=== PATIENT | female | born 1985 | race Caucasian/White ===

== ENCOUNTER 2019-03-31 16:21 | Emergency (ER) | payer OTHER ==
[2019-03-31 17:59] VITALS: O2SAT 98
--- NOTE | 2019-03-31 18:26 | ERPHSYRPT ---
- History of Present Illness Time Seen by Provider: 03/31/19 16:55 Source: patient, family Exam Limitations: no limitations Patient Subjective Stated Complaint: Pt stepped in a hole and twisted her left ankle Triage Nursing Assessment: Pt was wheeled into the ER by a wheelchair, left ankle swollen on the lateral side, vitals wnl, left foot swelling, capillary refill good, pulses normal, rates pain /10 Physician History: 33 y/o white female presents with tender swollen left ankle after pt foot fell into hole and twisted left ankle. pt can put weight on it but it hurts. occurred at 1100 this am Method of Injury: twisted Occurred: this morning Quality: aching, throbbing Severity of Pain-Max: mild Severity of Pain-Current: mild Lower Extremities Pain: ankle: left Modifying Factors: Improves With: movement Associated Symptoms: other (hurt to bear weight) Allergies/Adverse Reactions: Penicillins Allergy (Verified 03/31/19 16:53) shellfish derived Allergy (Verified 03/31/19 16:53) Home Medications: Bupropion HCl [Wellbutrin Sr] 200 mg PO BID 03/31/19 [History] Calcium Carbonate/Vitamin D3 [Calcium 600 + Vit D Tablet] 1 each PO DAILY [History] Fluoxetine HCl 20 mg PO DAILY 03/31/19 [History] Folic Acid 1 mg [Folate 1 mg] 1 mg PO DAILY 03/31/19 [History] Hydroxyzine HCl 25 mg [Atarax 25 mg] 25 mg PO BID 03/31/19 [History] Montelukast Sodium 10 mg [Singulair 10 MG] 10 mg PO DAILY 03/31/19 [History] Montelukast Sodium 10 mg [Singulair 10 MG] 10 mg PO DAILY 03/31/19 [History] lamoTRIgine [Lamotrigine] 200 mg PO QAM 03/31/19 [History] raNITIdine HCl [Ranitidine HCl] 300 mg PO DAILY 03/31/19 [History] - Review of Systems Constitutional: No Symptoms Eyes: No Symptoms Ears, Nose, & Throat: No Symptoms Respiratory: No Symptoms Cardiac: No Symptoms Abdominal/Gastrointestinal: No Symptoms Genitourinary Symptoms: No Symptoms Musculoskeletal: Fall, Injury (left ankle) Skin: No Symptoms Neurological: No Symptoms Psychological: No Symptoms Endocrine: No Symptoms Hematologic/Lymphatic: No Symptoms Immunological/Allergic: No Symptoms All Other Systems: Reviewed and Negative - Past Medical History Neurological History: Epilepsy ENT History: Other Cardiac History: No Pertinent History Respiratory History: No Pertinent History Endocrine Medical History: No Pertinent History Musculoskeletal History: No Pertinent History GI Medical History: No Pertinent History History: No Pertinent History Psycho-Social History: Anxiety Female Reproductive Disorders: No Pertinent History - Past Surgical History Past Surgical History: Yes Neuro Surgical History: No Pertinent History Cardiac: No Pertinent History Respiratory: No Pertinent History Gastrointestinal: No Pertinent History Genitourinary: No Pertinent History Musculoskeletal: Orthopedic Surgery Female Surgical History: Dilation & Curettage, Tubal Ligation - Social History Smoking Status: Former smoker Exposure to second hand smoke: No Drug Use: none Patient Lives Alone: No - Female History Hx Now: No - Nursing Vital Signs Nursing Vital Signs: Initial Vital Signs Temperature 98.5 F 03/31/19 16:44 Pulse Rate 83 03/31/19 16:44 Blood Pressure 114/80 03/31/19 16:44 O2 Sat by Pulse Oximetry 97 03/31/19 16:44 Pain Scale Pain Intensity 8 - Physical Exam General Appearance: no apparent distress, alert, anxiety Eyes, Ears, Nose, Throat Exam: normal ENT inspection, moist mucous membranes Neck Exam: normal inspection, non-tender, supple, full range of motion Cardiovascular/Respiratory Exam: No chest non-tender Gastrointestinal/Abdominal Exam: non-tender Back Exam: normal inspection, normal range of motion, CVA tenderness Hips Exam: bilateral: non-tender, normal inspection, normal range of motion, no evidence of injury Legs Exam: bilateral leg: non-tender, normal inspection, normal range of motion , no evidence of injury Knees Exam: bilateral knee: non-tender, normal inspection, normal range of motion, no evidence of injury Ankle Exam: right ankle: non-tender, normal inspection, normal range of motion, no evidence of injury, left ankle: limited range of motion, soft tissue tenderness (lateral), swelling (lateral) Foot Exam: bilateral foot: non-tender, normal inspection, normal range of motion , no evidence of injury Neuro/Tendon Exam: normal sensation, normal motor functions, normal tendon functions Mental Status Exam: alert, oriented x 3, cooperative Skin Exam: normal color, warm, dry SpO2 Interpretation: normal SpO2: 98 O2 Delivery: Room Air - Course Nursing assessment & vital signs reviewed: No Ordered Tests: Active Orders 24 hr Category Date Time Status ANKLE (3 VIEWS) Stat Exams 03/31/19 16:49 Taken - Progress Progress: unchanged Progress Note: 03/31/19 18:27 xray left ankle-no acute fx or dislocation Counseled pt/family regarding: diagnosis, need for follow-up, rad results - Departure Departure Disposition: Home Clinical Impression: Left ankle sprain Condition: Stable Critical Care Time: No Referrals: PINO WEEMS [Primary Care Provider] - Additional Instructions: ice pack to site 3 times daily for 2 days. tylenol and ibuprofen for pain. follow up with primary doctor for persistent pain/swelling
[2019-03-31] MEDS ORDERED: Adacel Vial IM ONE ×2 (18:32→18:37)
[2019-03-31 18:49] VITALS: BP 107/65; PULSE 86
--- NOTE | 2019-04-01 07:47 | XRAY ---
Indication: Pain following injury. Comparison: None 3 views of the left ankle demonstrates punctate ossification adjacent to tip of the lateral malleolus with soft tissue swelling, possible avulsion fracture. Tiny heel spurs. No other bony, articular, or soft tissue abnormalities.
== END 2019-03-31 18:52 | disposition home or self-care (01) ==
LOC: ED 16:21
DX: S93.402A Sprain of unspecified ligament of left ankle, initial encounter (principal); W50.2XXA Accidental twist by another person, initial encounter; Y93.89 Activity, other specified; Y92.89 Other specified places as the place of occurrence of the external cause; G40.909 Epilepsy, unspecified, not intractable, without status epilepticus; Z79.899 Other long term (current) drug therapy
CPT/HCPCS: 73610; 90471; 90715; 99284

== ENCOUNTER 2021-07-29 15:15 | Emergency (ER) | payer OTHER ==
[2021-07-29] MEDS ORDERED: Racepinephrine INH Solution 2.25% IH ONE ×2 (15:22→15:26)
[2021-07-29] MEDS ORDERED: solu-MEDROL 125 MG, Sterile H2O 10 ml 2 ML IV ONE ×2 (15:22)
[2021-07-29] MEDS ORDERED: BENADRYL 50 MG/ML IV ONE (15:22)
[2021-07-29] MEDS ORDERED: Pepcid 20 MG VIAL IV ONE ×2 (15:22→15:24)
[2021-07-29] MEDS ORDERED: BENADRYL 50 MG/ML ONE (15:24)
[2021-07-29] MEDS ORDERED: Sterile H2O 10 ml IJ ONE (15:25)
[2021-07-29] MEDS ORDERED: solu-MEDROL ONE (15:25)
[2021-07-29] MEDS ORDERED: Sodium Chloride 3 ML UD NEBULES IH ONE (15:26)
--- NOTE | 2021-07-29 15:38 | ERPHSYRPT ---
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 She is complaining of sudden onset moderate intensity throat pain/scratchiness with some swelling without any difficulty breathing. Does not report swelling of tongue. Timing/Duration: abrupt onset, this afternoon Severity: moderate ENT Location: throat Prearrival Treatment: no prearrival treatment Associated Symptoms: sore throat Allergies/Adverse Reactions: bee venom protein (honey bee) Allergy (Verified 07/29/21 15:29) Penicillins Allergy (Verified 03/31/19 16:53) shellfish derived Allergy (Verified 03/31/19 16:53) Home Medications: Bupropion HCl [Wellbutrin Sr] 200 mg PO BID 03/31/19 [History] Calcium Carbonate/Vitamin D3 [Calcium 600 + Vit D Tablet] 1 each PO DAILY 03/31/19 [History] Fluoxetine HCl 20 mg PO DAILY 03/31/19 [History] Folic Acid 1 mg [Folate 1 mg] 1 mg PO DAILY 03/31/19 [History] Hydroxyzine HCl 25 mg [Atarax 25 mg] 10 mg PO BID 03/31/19 [History] lamoTRIgine [Lamotrigine] 200 mg PO QAM 03/31/19 [History] Fexofenadine HCl [Felicia] 30 mg PO DAILY 07/29/21 [History] Omeprazole 20 mg PO DAILY 07/29/21 [History] Travel Risk - International Travel Have you traveled outside of the country in past 3 weeks: No - Coronavirus Screening Are you exhibiting any of the following symptoms?: No Close contact with a COVID-19 positive Pt in past 14-21 Days: No - Vaccine Status Have you recieved a Covid-19 vaccination: Yes Patient Assistant: [employer] - Vaccination Dates Date of 2cond Vaccination (if applicable): 03/2021 - Review of Systems Constitutional: No Symptoms Eyes: No Symptoms Ears, Nose, & Throat: Throat Pain, Throat Swelling Respiratory: No Symptoms Cardiac: No Symptoms Abdominal/Gastrointestinal: No Symptoms Genitourinary Symptoms: No Symptoms Musculoskeletal: No Symptoms Skin: No Symptoms Neurological: No Symptoms Psychological: No Symptoms Endocrine: No Symptoms Hematologic/Lymphatic: No Symptoms Immunological/Allergic: No Symptoms - Past Medical History Pertinent Past Medical History: Yes Neurological History: Epilepsy ENT History: Other Cardiac History: No Pertinent History Respiratory History: No Pertinent History Endocrine Medical History: No Pertinent History Musculoskeletal History: No Pertinent History GI Medical History: No Pertinent History History: No Pertinent History Psycho-Social History: Anxiety Female Reproductive Disorders: No Pertinent History Other Medical History: sinus - Past Surgical History Past Surgical History: Yes Neuro Surgical History: No Pertinent History Cardiac: No Pertinent History Respiratory: No Pertinent History Gastrointestinal: No Pertinent History Genitourinary: No Pertinent History Musculoskeletal: Orthopedic Surgery Female Surgical History: Dilation & Curettage, Tubal Ligation - Social History Smoking Status: Former smoker Exposure to second hand smoke: No Drug Use: none Patient Lives Alone: No - Female History Hx Now: No - Nursing Vital Signs Nursing Vital Signs: Initial Vital Signs Temperature 98.6 F 07/29/21 15:19 Pulse Rate 96 H 07/29/21 15:19 Blood Pressure 148/87 07/29/21 15:19 O2 Sat by Pulse Oximetry 100 07/29/21 15:19 Pain Scale Pain Intensity 2 - Physical Exam General Appearance: no apparent distress, alert Eye Exam: bilateral eye: normal inspection, PERRL, EOMI Ear Exam: bilateral ear: auricle normal, canal normal, TM normal Nasal Exam: normal inspection Throat Exam: pharynx swelling, pharynx tenderness, uvula swelling Neck Exam: normal inspection, non-tender, full range of motion Cardiovascular/Respiratory Exam: normal breath sounds, regular rate/rhythm Abdominal Exam: non-tender Neurologic Exam: alert, oriented x 3, cooperative, 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, normal mood/affect Skin Exam: normal color SpO2 Interpretation: normal SpO2: 100 O2 Delivery: Room Air Ordered Tests: Active Orders 24 hr Category Date Time Status IV Insertion STAT Care 10/01/21 15:22 Completed Respiratory Therapy Assessment DAILY RT 07/29/21 15:35 Completed Medication Summary Discontinued Medications Generic Name Dose Route Start Last Admin Trade Name Jacquelyn PRN Reason Stop Dose Admin Methylprednisolone Sodium 0 mg 07/29/21 15:22 07/29/21 15:29 Succinate 125 mg/ Sterile IV 07/29/21 15:23 125 mg Water 2 ml STAT ONE Administration Diphenhydramine HCl 50 mg 07/29/21 15:22 07/29/21 15:26 Benadryl 50 Mg/Ml IV 07/29/21 15:23 50 mg STAT ONE Administration Diphenhydramine HCl Confirm 07/29/21 15:24 Benadryl 50 Mg/Ml Administered 07/29/21 15:25 Dose 50 mg .ROUTE .STK-MED ONE Epinephrine 0.5 ml 07/29/21 15:22 07/29/21 15:29 Racepinephrine Inh Solution 2.25% IH 07/29/21 15:23 0.5 ml STAT ONE Administration Epinephrine Confirm 07/29/21 15:26 Racepinephrine Inh Solution 2.25% Administered 07/29/21 15:27 Dose 0.5 ml IH .STK-MED ONE Famotidine 20 mg 07/29/21 15:22 07/29/21 15:30 Pepcid 20 Mg Vial IV 07/29/21 15:23 20 mg STAT ONE Administration Famotidine Confirm 07/29/21 15:24 Pepcid 20 Mg Vial Administered 07/29/21 15:25 Dose 20 mg IV .STK-MED ONE Methylprednisolone Sodium Succinate Confirm 07/29/21 15:25 Solu-Medrol Administered 07/29/21 15:26 Dose 125 mg .ROUTE .STK-MED ONE Sodium Chloride Confirm 07/29/21 15:26 Sodium Chloride 3 Ml Ud Nebules Administered 07/29/21 15:27 Dose 3 ml IH .STK-MED ONE Sterile Water Confirm 07/29/21 15:25 Sterile H2o 10 Ml Administered 07/29/21 15:26 Dose 10 ml IJ .STK-MED ONE - Progress Progress: improved, re-examined Progress Note: 07/29/21 18:50 Patient continue to improve after receiving Solu-Medrol/Benadryl/racemic epi and Pepcid. No difficulty breathing or swallowing. Not in any distress. Observe for almost 3 hours and remained stable. She is given prescription of above medications along with EpiPen. Recommended outpatient follow-up. Discussed signs symptoms of worsening including anaphylaxis and use of EpiPen which she seemed understanding. Stable for discharge. Counseled pt/family regarding: diagnosis, need for follow-up - Departure Departure Disposition: Home Clinical Impression: Bee sting reaction Qualifiers: Encounter type: initial encounter Injury intent: accidental or unintentional Qualified Code(s): T63.441A - Toxic effect of venom of bees, accidental (unintentional), initial encounter Allergic reaction Qualifiers: Encounter type: initial encounter Qualified Code(s): T78.40XA - Allergy, unspecified, initial encounter Condition: Stable Critical Care Time: No Referrals: PINO WEEMS NP [Primary Care Provider] - Follow Up with PCP/3 days Instructions: Anaphylaxis (DC) Additional Instructions: Use EpiPen as needed. Follow-up with primary care for reevaluation. Return to ER immediately if having difficulty breathing, throat closing sensation/choking etc. Prescriptions: Diphenhydramine HCl 25 mg [Benadryl 25 mg Capsule] 25 mg PO Q4H PRN PRN #20 cap PRN Reason: Allergies Prednisone 20 mg [Deltasone 20 mg] 60 mg PO DAILY 5 Days #15 tablet Epinephrine [Epipen] 0.3 mg IM DIRECTIONS UNKNOWN 1 Days #0.3 ml Famotidine 20 mg [Pepcid 20 MG] 20 mg PO BID #14 tablet Albuterol 8 gm Mdi Hfa [Ventolin Hfa MDI] 8 gm IH Q4H #1 inh
[2021-07-29 17:07] VITALS: BP 127/73; PULSE 76
[2021-07-29 18:53] VITALS: O2SAT 100
== END 2021-07-29 19:00 | disposition home or self-care (01) ==
LOC: ED 15:15
DX: T63.441A Toxic effect of venom of bees, accidental (unintentional), initial encounter (principal)
CPT/HCPCS: 36000; 94640; 96374; 96375; 99284; J1200; J2930

== ENCOUNTER 2021-09-08 09:23 | Emergency (ER) | payer OTHER ==
--- NOTE | 2021-09-08 09:28 | ERPHSYRPT ---
- History of Present Illness Time Seen by Provider: 09/08/21 09:28 Source: patient Exam Limitations: no limitations Physician History: This is a 35-year-old overweight white female who fell off short stepped ladder yesterday afternoon and rolled her right ankle. There is still swelling and tenderness present in she wants to get an x-ray to determine if there is a sprain versus an actual ankle fracture. She did not hit her head. She has no headache. She has no neck pain. Occurred: yesterday Quality: aching Severity of Pain-Max: mild Severity of Pain-Current: mild Lower Extremities Pain: ankle: right Modifying Factors: Improves With: movement Associated Symptoms: other (Can bear weight) Allergies/Adverse Reactions: bee venom protein (honey bee) Allergy (Verified 07/29/21 15:29) Penicillins Allergy (Verified 03/31/19 16:53) shellfish derived Allergy (Verified 03/31/19 16:53) Home Medications: Bupropion HCl [Wellbutrin Sr] 200 mg PO BID 03/31/19 [History] Calcium Carbonate/Vitamin D3 [Calcium 600 + Vit D Tablet] 1 each PO DAILY 03/31/19 [History] Fluoxetine HCl 20 mg PO DAILY 03/31/19 [History] Folic Acid 1 mg [Folate 1 mg] 1 mg PO DAILY 03/31/19 [History] Hydroxyzine HCl 25 mg [Atarax 25 mg] 10 mg PO BID 03/31/19 [History] lamoTRIgine [Lamotrigine] 200 mg PO QAM 03/31/19 [History] Fexofenadine HCl [Felicia] 30 mg PO DAILY 07/29/21 [History] Omeprazole 20 mg PO DAILY 07/29/21 [History] Travel Risk - International Travel Have you traveled outside of the country in past 3 weeks: No - Coronavirus Screening Are you exhibiting any of the following symptoms?: No Close contact with a COVID-19 positive Pt in past 14-21 Days: No - Vaccine Status Have you recieved a Covid-19 vaccination: Yes [employer]: [employer] - Vaccination Dates Date of 2cond Vaccination (if applicable): 03/2021 - Review of Systems Constitutional: No Symptoms Eyes: No Symptoms Ears, Nose, & Throat: No Symptoms Respiratory: No Symptoms Cardiac: No Symptoms Abdominal/Gastrointestinal: No Symptoms Genitourinary Symptoms: No Symptoms Musculoskeletal: Fall (Right ankle), Injury (Right ankle) Skin: No Symptoms Neurological: No Symptoms Psychological: No Symptoms Endocrine: No Symptoms Hematologic/Lymphatic: No Symptoms Immunological/Allergic: No Symptoms All Other Systems: Reviewed and Negative - Past Medical History Pertinent Past Medical History: Yes Neurological History: Epilepsy ENT History: Other Cardiac History: No Pertinent History Respiratory History: No Pertinent History Endocrine Medical History: No Pertinent History Musculoskeletal History: No Pertinent History GI Medical History: No Pertinent History History: No Pertinent History Psycho-Social History: Anxiety Female Reproductive Disorders: No Pertinent History Other Medical History: sinus - Past Surgical History Past Surgical History: Yes Neuro Surgical History: No Pertinent History Cardiac: No Pertinent History Respiratory: No Pertinent History Gastrointestinal: No Pertinent History Genitourinary: No Pertinent History Musculoskeletal: Orthopedic Surgery Female Surgical History: Dilation & Curettage, Tubal Ligation - Social History Smoking Status: Former smoker Exposure to second hand smoke: No Drug Use: none Patient Lives Alone: No - Nursing Vital Signs Nursing Vital Signs: Initial Vital Signs Temperature 97.6 F 09/08/21 09:29 Pulse Rate 80 09/08/21 09:29 Respiratory Rate 20 09/08/21 09:29 Blood Pressure 131/75 09/08/21 09:29 O2 Sat by Pulse Oximetry 96 09/08/21 09:29 Pain Scale Pain Intensity 4 - Physical Exam General Appearance: no apparent distress, alert, anxiety, obese Neck Exam: normal inspection, non-tender, supple, full range of motion Cardiovascular/Respiratory Exam: chest non-tender, no respiratory distress Gastrointestinal/Abdominal Exam: non-tender Back Exam: normal inspection, normal range of motion, No CVA tenderness, No vertebral tenderness Hips Exam: bilateral: non-tender, normal inspection, normal range of motion, no evidence of injury Legs Exam: bilateral leg: non-tender, normal inspection, normal range of motion, no evidence of injury Knees Exam: bilateral knee: non-tender, normal inspection, normal range of motion, no evidence of injury Ankle Exam: right ankle: soft tissue tenderness, swelling, left ankle: non- tender, normal inspection, normal range of motion, no evidence of injury Foot Exam: bilateral foot: non-tender, normal inspection, normal range of motion, no evidence of injury Neuro/Tendon Exam: normal sensation, normal motor functions, normal tendon functions Mental Status Exam: alert, oriented x 3, cooperative Skin Exam: normal color, warm, dry SpO2 Interpretation: normal O2 Delivery: Room Air Ordered Tests: Active Orders 24 hr Category Date Time Status ANKLE (3 VIEWS) Stat Exams 09/08/21 09:49 Completed - Progress Progress Note: 09/08/21 10:25 right ankle xray no acute fx or dislocation Counseled pt/family regarding: diagnosis, need for follow-up, rad results - Departure Departure Disposition: Home Clinical Impression: Right ankle sprain Condition: Stable Critical Care Time: No Referrals: PINO WEEMS NP [Primary Care Provider] - Follow up/PCP as directed Additional Instructions: Ice pack to area 3 times a day for the next 48 hours. Use Tylenol ibuprofen for pain control. May follow-up with [facility] orthopedic clinic or Dr. Grewal podiatry if your right ankle pain and swelling persist beyond the next 2 to 3 days. Wear your Cisco wrap and ankle brace as needed. Elevate your right lower extremity above the level of your heart when not walking.
--- NOTE | 2021-09-08 10:19 | XRAY ---
Indication: Pain following fall. Comparison: None 3 view right ankle demonstrates soft tissue swelling. No other bony, articular, or soft tissue abnormalities.
== END 2021-09-08 10:55 | disposition home or self-care (01) ==
LOC: ED 09:23
DX: S93.401A Sprain of unspecified ligament of right ankle, initial encounter (principal); W11.XXXA Fall on and from ladder, initial encounter
CPT/HCPCS: 73610; 99283

== ENCOUNTER 2022-03-07 10:21 | Day surgery (SDC) | payer OTHER ==
[2022-03-07] MEDS ORDERED: CLINDAMYCIN-D5W 900 MG/50 ML*** 900 MG/50 ML BAG IV SCH (11:00)
[2022-03-07] MEDS ORDERED: Lactated Ringers 1,000 ML IV SCH (11:00)
[2022-03-07] MEDS ORDERED: DIPRIVAN 200 MG/20 ML IV ONE (13:30)
[2022-03-07] MEDS ORDERED: Quelicin Fliptop 200 MG/10 ML ONE (13:30)
[2022-03-07] MEDS ORDERED: Versed 2 MG/2 ML Injection ONE (13:30)
[2022-03-07] MEDS ORDERED: Zemuron 100 MG/10 ML ONE ×2 (13:30→15:45)
[2022-03-07] MEDS ORDERED: Lactated Ringers 1,000 ML IV ONE (14:27)
[2022-03-07] MEDS ORDERED: PHENYLEPHRINE HCL ONE (14:58)
[2022-03-07] MEDS ORDERED: Naropin 0.5% 30 ML VIAL ONE (15:50)
[2022-03-07] MEDS ORDERED: BRIDION 200MG/2ML IV ONE (15:55)
[2022-03-07 17:34] VITALS: BP 120/79; O2SAT 96
[2022-03-07 17:50] VITALS: PULSE 103
--- NOTE | 2022-03-07 21:10 | XRAY ---
Exam: C-arm intraoperative fluoroscopy and imaging of left ankle from 03/07/2022. Comparison: 3 radiographs of the left ankle from 03/31/2019. Indication: Arthroscopy, synovectomy, and stabilization of the lateral collateral ligament of left ankle. Findings: 12 intraoperative C-arm images of the left ankle in AP, oblique, and lateral projections were obtained. 35 seconds of intraoperative fluoroscopy time was utilized. Metallic orthopedic instrumentation is seen overlying the left ankle. 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 This is unchanged from 03/31/2019. There is a tiny plantar left calcaneal spur. Please correlate with intraoperative findings and report.
--- NOTE | 2022-03-08 10:04 | OP ---
SURGERY DATE: 03/07/2022 5201 PREOPERATIVE DIAGNOSES: 1) Pain left ankle. 2) Left ankle synovitis. 3) Lateral ankle instability. 4) MRI confirmed rupture of anterior talofibular ligament (ATFL) and calcaneofibular ligament (CFL). POSTOPERATIVE DIAGNOSES: 1) Pain left ankle. 2) Left ankle synovitis. 3) Lateral ankle instability. 4) MRI confirmed rupture of anterior talofibular ligament (ATFL) and calcaneofibular ligament (CFL). PROCEDURES: 1) Ankle arthroscopy left with synovectomy. 2) Lateral ankle stabilization with internal ankle brace Brostrom-Howell modification. SURGEON: Uri Johns DPM. SHIPPING LEAD: None. ANESTHESIA: General plus a postoperative regional block to the popliteal fossa. See anesthesia report for details. HEMOSTASIS: Thigh tourniquet set to 350 mm of Mercury for total 50 total minutes. ESTIMATED BLOOD LOSS: Less than 10 cc. MATERIALS: Jr Biomet 2.9 JuggerKnot with BroadBand to 2.9 mm Quattro Link PEEK Tie Siding and two - 1.5 mm JuggerKnot with BroadBand to anterior talofibular ligament. INJECTABLES: See anesthesia report for details. INDICATION FOR SURGERY: Valerie is a very pleasant 36-year-old female who has been known to my service for approximately one year now who has been progressive with multiple attempts at immobilization, physical therapy and has failed all of these attempts in order to manage her chronic lateral ankle instability as well as pain within her ankle. The patient had an injection on one of her more recent visits and failed to get any relief for longer than a week or so. At the follow up appointment for the injection, the patient had a discussion regarding surgical options to which she agreed to arthroscopy with synovectomy as well as lateral ankle stabilization. 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 At this time the patient understands all risks, benefits and complications of the surgical intervention including but not limited to infection, hematoma, seroma, possibility of failure of surgical intervention, possibility of need for surgical intervention at a later date. No guarantees were provided as to the outcome. The patient was allowed plenty of time to ask questions in regards to the surgery and the postoperative course which were explained to the patient's apparent satisfaction. It is at that time we determined to proceed with surgical intervention. DESCRIPTION OF PROCEDURE AND FINDINGS: The patient is brought into the OR and placed on the OR table in the supine position. At this time, adequate general anesthesia was administered by the anesthesia team. At this time a well-padded thigh tourniquet was applied to the patient's left thigh. The left lower extremity was prepped and draped in the typical sterile fashion. At this time a 4.0 mm - 30 degree arthroscopic camera was introduced into the anteromedial portal aspect of the left ankle. Following this under the light assistance, the superficial peroneal nerve was identified and an incision was made just lateral to this area. The 2.7 mm shaver was introduced into the anterolateral portal and visualization of the ankle joint was made. At this time a complete synovectomy was performed at the anterior aspect of the left ankle removing any hemorrhagic synovitis and any scar tissue within the ankle joint. Following this, the ankle scope was removed from the joint and an Esmarch was utilized to exsanguinate the leg. The tourniquet was inflated to 350 mm of Mercury and an incision was made at the distal tip of the fibula down the central aspect of the talus this was performed utilizing a 15 blade and a combination of blunt and sharp dissection careful not to damage any neurovascular structures along the way. At this time, a 2 mm cuff was resected off of the distal anterior aspect of the fibula and periosteal shelf was elevated in order to visualize the fibula. The anterior talofibular ligament was thickened to approximately 6 to 8 mm and this was reflected off of the lateral aspect of the talar body exposing the dell between the talar neck and body at the lateral aspect. At this time, a 2.9 JuggerKnot was introduced to this area approximately 45 degrees into the talar body and under fluoroscopic guidance insuring that we were not violating the tibiotalar or subtalar joint space. At this time the JuggerKnot was deployed and deemed to be in solid fixation, solid within the bone. At this time, a 2.9 Quattro Link PEEK anchor was placed into the distal foot print of the anterior talofibular ligament intra-articular at the distal tip of the fibula. This was performed with slight slack and the foot held with slight dorsiflexion. At this time, the Brostrom-Howell portion of the procedure was performed utilizing a 1.45 JuggerKnot with BroadBand just proximal and distal to the Quattro Link anchor. These were utilized to reef up the anterior talofibular ligament while the foot was held in dorsiflexion. After the first pass a second pass was performed in order to obtain some suture bite within the inferior extensor retinaculum this was utilized to reinforce the repair as per Howell modification standard. At this time, copious amounts of sterile saline were utilized to flush the surgical site. The periosteal cuff was repaired utilizing 2-0 Vicryl to prevent any irritation from the soft tissue anchors. Following this, 4-0 Monocryl was utilized to coapt the subcutaneous skin edges in a simple interrupted buried-type fashion. Following this, a 3-0 Nylon was utilized to coapt the skin edges in a horizontal mattress-type fashion. Following this, the tourniquet was let down. Total of 50 minutes with the tourniquet was appreciated. Following this, dressing consisting Chlorhexidine, Adaptic, 4x4's and Kerlix were applied to the left lower extremity and then a well-padded posterior splint was applied to the left lower extremity. At this time the patient was provided a popliteal and saphenous block. The patient then was returned to the postoperative anesthesia care unit with vital signs stable and vascular status intact. The patient handled the anesthesia as well as the procedure without significant complication. Postoperative orders as indicated in the patient's discharge chart.
--- NOTE | 2022-03-08 16:14 | XRAY ---
35 seconds fluoroscopy time in surgery for lateral ankle stabilization.
== END 2022-03-07 17:55 | disposition home or self-care (01) ==
LOC: SDC 10:21
PROVIDERS: ATTEND Podiatrist Foot & Ankle Surgery
DX: M65.872 Other synovitis and tenosynovitis, left ankle and foot (principal); M25.572 Pain in left ankle and joints of left foot; M25.372 Other instability, left ankle; S93.492A Sprain of other ligament of left ankle, initial encounter; S93.412A Sprain of calcaneofibular ligament of left ankle, initial encounter
CPT/HCPCS: 27696; 27698; 29895; 29898; 73600; 76000; 84703; C1713; J0330; J2250; J2370; J2704; J2795

== ENCOUNTER 2022-05-07 11:57 | Emergency (ER) | payer OTHER ==
[2022-05-07] MEDS ORDERED: Zofran 4 MG/2 ML VIAL IV ONE (12:14)
[2022-05-07] MEDS ORDERED: Sodium Chloride 0.9% 1000 ML 1,000 ML IV STA (12:14)
--- NOTE | 2022-05-07 12:27 | ERPHSYRPT ---
- History of Present Illness Time Seen by Provider: 05/07/22 12:25 Historian: patient Exam Limitations: no limitations Patient Subjective Stated Complaint: C/O N/V and diarrhea since night. C/O abdominal cramping. Triage Nursing Assessment: Patient ambulated back to ED without diffculties; is wearing a boot to her left foot/ankle. No SOB noted. Patient is alert and oriented and answering questions appropriately. Skin is dry. Bowel sounds present. Physician History: Patient is 36-year-old female came to the emergency room with history of diarrhea abdominal cramps for 3 days. Patient denies any fever chills nausea or vomiting. Patient did not have the same problem before. Patient denies any sick contacts at home. Patient thought that she might have a 24-hour bug which should resolve but it did not so she came to the emergency room. She denies any blood in the stool or blood in her urine. Timing/Duration: day(s) (three days) Activities at Onset: none Abdominal Pain Onset Location: generalized abdomen Pain Radiation: no radiation Severity of Pain-Max: mild Severity of Pain-Current: mild Modifying Factors: Improves With: nothing Associated Symptoms: diarrhea, loss of appetite Previous symptoms: no prior history Allergies/Adverse Reactions: bee venom protein (honey bee) Allergy (Verified 05/07/22 12:07) Penicillins Allergy (Verified 05/07/22 12:07) shellfish derived Allergy (Verified 05/07/22 12:07) Home Medications: Fluoxetine HCl 20 mg PO BID 03/31/19 [History] Folic Acid 1 mg [Folate 1 mg] 1 mg PO DAILY 03/31/19 [History] buPROPion HCL [Wellbutrin Sr] 200 mg PO BID 03/31/19 [History] lamoTRIgine [Lamotrigine] 200 mg PO QAM 03/31/19 [History] Omeprazole 20 mg PO DAILY 07/29/21 [History] Atorvastatin Calcium [Lipitor] 1 tab PO DAILY 05/07/22 [History] Fluconazole 1 tab PO DAILY 05/07/22 [History] Ketoconazole 200 mg [Nizoral 200 MG] 1 tab PO DAILY 05/07/22 [History] Montelukast Sodium 10 mg [Singulair 10 MG] 1 tab PO DAILY 05/07/22 [History] hydrOXYzine HCL [Hydroxyzine HCl] 1 tab PO DAILY PRN 05/07/22 [History] Hx Tetanus, Diphtheria Vaccination/Date Given: Yes Hx Influenza Vaccination/Date Given: No Hx Pneumococcal Vaccination/Date Given: No Immunizations Up to Date: Yes Travel Risk - International Travel Have you traveled outside of the country in past 3 weeks: No - Coronavirus Screening Are you exhibiting any of the following symptoms?: Yes Symptoms: Vomiting/Diarrhea Close contact with a COVID-19 positive Pt in past 14-21 Days: No - Vaccine Status Have you recieved a Covid-19 vaccination: Yes Sales Property Manager: [employer] - Vaccination Dates Date of 2cond Vaccination (if applicable): 2020 - Review of Systems Constitutional: No Fever, No Chills Eyes: No Symptoms Ears, Nose, & Throat: No Symptoms Respiratory: No Cough, No Dyspnea Cardiac: No Chest Pain, No Edema, No Syncope Abdominal/Gastrointestinal: Abdominal Pain, Diarrhea, Appetite Changes, No Nausea, No Vomiting Genitourinary Symptoms: No Dysuria Musculoskeletal: No Back Pain, No Neck Pain Skin: No Rash Neurological: No Dizziness, No Focal Weakness, No Sensory Changes Psychological: No Symptoms Endocrine: No Symptoms All Other Systems: Reviewed and Negative - Past Medical History Pertinent Past Medical History: Yes Neurological History: Epilepsy ENT History: Other Cardiac History: High Cholesterol Respiratory History: Asthma Endocrine Medical History: No Pertinent History Musculoskeletal History: Other GI Medical History: GERD History: No Pertinent History Psycho-Social History: Anxiety, Depression Female Reproductive Disorders: No Pertinent History Other Medical History: PATIENT EVALUATED FOR RHEUMATOID - HAS HAD TWO ELEVATED JENNIFER. - Past Surgical History Past Surgical History: Yes Neuro Surgical History: No Pertinent History Cardiac: No Pertinent History Respiratory: No Pertinent History Gastrointestinal: No Pertinent History Genitourinary: No Pertinent History Musculoskeletal: Orthopedic Surgery Female Surgical History: Dilation & Curettage, Tubal Ligation Other Surgical History: carpal tunnel, ablasion, left foot (ligament) surgery - Social History Smoking Status: Former smoker Exposure to second hand smoke: No Drug Use: none Patient Lives Alone: No - Female History Hx Last Menstrual Period: 2015 Hx Now: No - Nursing Vital Signs Nursing Vital Signs: Initial Vital Signs Temperature 97.1 F 05/07/22 12:07 Pulse Rate 93 H 05/07/22 12:07 Respiratory Rate 17 05/07/22 12:07 Blood Pressure 131/95 05/07/22 12:07 O2 Sat by Pulse Oximetry 95 05/07/22 12:07 Pain Scale Pain Intensity 4 - Physical Exam General Appearance: no apparent distress, alert Eye Exam: PERRL/EOMI, eyes nml inspection Ears, Nose, Throat Exam: normal ENT inspection, pharynx normal, moist mucous membranes Neck Exam: normal inspection, non-tender, supple, full range of motion Respiratory Exam: normal breath sounds, lungs clear, No respiratory distress Cardiovascular Exam: regular rate/rhythm, normal heart sounds Gastrointestinal/Abdomen Exam: soft, No tenderness, No mass Back Exam: normal inspection, normal range of motion, No CVA tenderness, No vertebral tenderness Extremity Exam: normal inspection, normal range of motion, pelvis stable Neurologic Exam: alert, oriented x 3, cooperative, normal mood/affect, nml cerebellar function, sensation nml, No motor deficits Skin Exam: normal color, warm, dry SpO2: 95 - Course Nursing assessment & vital signs reviewed: Yes Ordered Tests: Active Orders 24 hr Category Date Time Status AMYLASE Stat Lab 05/07/22 12:10 Completed CBC W DIFF Stat Lab 05/07/22 12:10 Completed CMP Stat Lab 05/07/22 12:10 Completed CULTURE,URINE Stat Lab 05/07/22 12:34 Received FECAL OCCULT BLOOD - SCREENING Stat Lab 05/07/22 12:15 Ordered LIPASE Stat Lab 05/07/22 12:10 Completed UA W/RFX CULTURE Stat Lab 05/07/22 12:34 Completed Medication Summary Generic Name Dose Route Start Last Admin Trade Name Freq PRN Reason Stop Dose Admin Sodium Chloride 1,000 mls @ 999 mls/hr 05/07/22 12:14 05/07/22 12:36 Sodium Chloride 0.9% 1000 Ml IV 05/07/22 13:14 999 mls/hr .Q1H1M STA Administration Discontinued Medications Generic Name Dose Route Start Last Admin Trade Name Freq PRN Reason Stop Dose Admin Sodium Chloride Confirm 05/07/22 12:29 Sodium Chloride 0.9% 1000 Ml Administered 05/07/22 12:30 Dose 1,000 mls @ ud .ROUTE .STK-MED ONE Ondansetron HCl 4 mg 05/07/22 12:14 05/07/22 12:38 Ondansetron Hcl 4 Mg/2 Ml Vial IV 05/07/22 12:15 4 mg STAT ONE Administration Ondansetron HCl Confirm 05/07/22 12:29 Ondansetron Hcl 4 Mg/2 Ml Vial Administered 05/07/22 12:30 Dose 4 mg .ROUTE .STK-MED ONE Potassium Chloride 10 meq 05/07/22 12:55 05/07/22 13:03 Potassium Chloride Tab 10 Meq Tab PO 05/07/22 12:56 10 meq STAT ONE Administration Potassium Chloride Confirm 05/07/22 13:02 Potassium Chloride Tab 10 Meq Tab Administered 05/07/22 13:03 Dose 10 meq PO .STK-MED ONE Lab/Rad Data: Laboratory Result Diagrams 05/07/22 12:10 05/07/22 12:10 Laboratory Results 05/07/22 05/07/22 05/07/22 Range/Units 12:34 12:10 12:10 WBC 7.0 (4.0-10.5) x10^3/uL RBC 4.28 (4.1-5.4) x10^6/uL Hgb 12.9 (12.0-16.0) g/dL Hct 38.8 (35-47) % MCV 90.7 (78-100) fL MCH 30.1 (26-32) pg MCHC 33.2 (32-36) g/dL RDW 12.7 (11.5-14.0) % Plt Count 211 (150-450) x10^3/uL MPV 10.3 (7.5-11.0) fL Gran % 64.9 (36.0-66.0) % Immature Gran % (Auto) 0.4 (0.00-0.4) % Nucleat RBC Rel Count 0.0 (0.00-0.1) % Eos # (Auto) 0.07 (0-0.5) x10^3/uL Immature Gran # (Auto) 0.03 (0.00-0.03) x10^3u/L Absolute Lymphs (auto) 1.76 (1.0-4.6) x10^3/uL Absolute Monos (auto) 0.56 (0.0-1.3) x10^3/uL Absolute Nucleated RBC 0.00 (0.00-0.01) x10^3u/L Lymphocytes % 25.3 (24.0-44.0) % Monocytes % 8.1 (0.0-12.0) % Eosinophils % 1.0 (0.00-5.0) % Basophils % 0.3 (0.0-0.4) % Absolute Granulocytes 4.51 (1.4-6.9) x10^3/uL Basophils # 0.02 (0-0.4) x10^3/uL Sodium 136 L (137-145) mmol/L Potassium 3.4 L (3.5-5.1) mmol/L Chloride 99 (98-107) mmol/L Carbon Dioxide 26 (22-30) mmol/L Anion Gap 13.6 (5-15) MEQ/L BUN 10 (7-17) mg/dL Creatinine 0.64 (0.52-1.04) mg/dL Estimated GFR > 60.0 ML/MIN Glucose 97 (74-106) mg/dL Calcium 9.0 (8.4-10.2) mg/dL Total Bilirubin 0.70 (0.2-1.3) mg/dL AST 30 (14-36) U/L ALT 18 (0-35) U/L Alkaline Phosphatase 86 (38-126) U/L Serum Total Protein 7.6 (6.3-8.2) g/dL Albumin 3.9 (3.5-5.0) g/dL Amylase 57 (30-110) U/L Lipase 48 (23-300) U/L Urinalys Dipstick Clnc MAIN LAB Urine Color YELLOW (YELLOW) Urine Appearance CLEAR (CLEAR) Urine pH 6.0 (5-6) Ur Specific [place] 1.020 (1.005-1.025) POC Urine Protein Conf 30 (Negative) Urine Ketones NEGATIVE (NEGATIVE) Urine Nitrite NEGATIVE (NEGATIVE) Urine Bilirubin SMALL (NEGATIVE) Urine Urobilinogen 0.2 (0-1) mg/dL Urine Leukocytes NEGATIVE (NEGATIVE) Urine WBC (Auto) 3-5 (0-5) /HPF Urine RBC (Auto) 16-25 (0-2) /HPF U Epithel Cells (Auto) RARE (FEW) /HPF Urine Bacteria (Auto) RARE (NEGATIVE) /HPF Urine RBC LARGE (0-5) Keyur/ul Urine Mucus (Auto) SLIGHT (NEGATIVE) /HPF Ur Culture Indicated? YES Urine Glucose NEGATIVE (NEGATIVE) mg/dL - Progress Progress: improved Counseled pt/family regarding: lab results, diagnosis, need for follow-up - Departure Departure Disposition: Home Clinical Impression: Viral gastroenteritis, Hypokalemia due to excessive gastrointestinal loss of potassium Condition: Stable Critical Care Time: No Referrals: PINO WEEMS, ELEVATED GUARD [Primary Care Provider] - Follow up/PCP as directed Instructions: Diarrhea and Travelers' Diarrhea, Adult (DC), Hypokalemia (DC) Additional Instructions: Discharge/Care Plan FELIX BLANK was seen on 05/07/22 in the Emergency Room. The patient was counseled regarding Diagnosis,Lab results, Imaging studies, need for follow up and when to return to the Emergency Room. Prescriptions given: Discharge Note I have spoken with the patient and/or caregivers. I have explained the patient's condition, diagnosis and treatment plan based on the information available to me at this time. I have answered the patient's and/or caregiver's questions and addressed any concerns. The patient and/or caregivers have as good understanding of the patient's diagnosis, condition and treatment plan as can be expected at this point. The vital signs have been stable. The patient's condition is stable and appropriate for discharge from the emergency department. The patient will pursue further outpatient evaluation with the primary care physician or other designated or consulting physician as outlined in the discharge instructions. The patient and/or caregivers are agreeable to this plan of care and follow-up instructions have been explained in detail. The patient and/or caregivers have received these instruction. The patient/and or caregivers are aware that any significant change in condition or worsening of symptoms should prompt an immediate return to this or the closest emergency department or call 911. FELIX BLANK was seen on 05/07/22 n the Emergency Room. At that time you were treated for an emergent condition, during your visit Laboratory, Radiology and/or other procedures may have been ordered. It is very important that you follow-up with your Primary Care Physician PINO WEEMS within the next 24-48 hours to review your Emergency Room visit and the final results of testing that was ordered. Some test results such as Urine Cultures, Blood Cultures, and other cultures if ordered will not be finalized for 24-48 hours. If you do not have a Primary Care Provider please call the medical records department at [phone] to obtain a copy of your results or you may sign into our patient portal to obtain these results by visiting us @ [email or web address] and completing the following steps: 1. Click on the Patient Portal link 2. Click the Patient Self Enrollment Link to complete the enrollment form and entering your 3. Once the enrollment form is completed you will receive an email with a temporary ID and password at the email address you provided. 4. Next choose a user name and password. Your user name must be at least 4 characters long and your password must be at least 4 characters long. 5. Choose a security question from the list and provide your answer to the question. If you already have signed into the Health Portal you may access your Health Care Information 21/05 by the following steps: 1. Login to our website @ [email or web address] 2. Enter your original user name and password. FAQS The [facility] Portal is an online tool that contains your Lab Results, Radiology Reports, Visit History, Discharge Instructions and Health Summary Lab and Radiology Results will not be available for 72 hours on the portal. The Portal is a secure site, passwords are encryted and URLs are re-written so they cannot be copied and pasted. You and authorized family members are the only ones who can access your Portal. Also there is a timeout feature that protects your information if you leave the Portal page open. If you have technical difficulty please use the Contact Us link on the page this will allow you to submit any questions you have regarding the Portal or you may contact the Medical Record Department at [phone] ext [phone]. Prescriptions: Ondansetron ODT 4 MG [Zofran Odt 4 mg] 4 mg PO Q6H PRN PRN #10 tablet PRN Reason: Nausea
[2022-05-07] MEDS ORDERED: Sodium Chloride 0.9% 1000 ML 1,000 ML ONE (12:29)
[2022-05-07] MEDS ORDERED: Zofran 4 MG/2 ML VIAL ONE (12:29)
[2022-05-07 12:32] LABS: Absolute Neutrophil Ct (ANC) 4.51 x10^3/uL (1.4-6.9); Basophil (Absolute #) 0.02 x10^3/uL (0-0.4); Eosinophil (Absolute #) 0.07 x10^3/uL (0-0.5); Hematocrit 38.8 % (35-47); Hemoglobin 12.9 g/dL (12.0-16.0); Lymphocyte (Absolute #) 1.76 x10^3/uL (1.0-4.6); Lymphocytes % 25.3 % (24.0-44.0); Mean Cell Volume 90.7 fL (78-100); Mean Corpuscular Hemoglobin 30.1 pg (26-32); Mean Corpuscular Hgb Concent. 33.2 g/dL (32-36); Mean Platelet Volume 10.3 fL (7.5-11.0); Monocyte (Absolute #) 0.56 x10^3/uL (0.0-1.3); Monocytes % 8.1 % (0.0-12.0); Neutrophil % 64.9 % (36.0-66.0); Platelet Count 211 x10^3/uL (150-450); Red Blood Count 4.28 x10^6/uL (4.1-5.4); Red Cell Distribution Width 12.7 % (11.5-14.0)
[2022-05-07 12:42] LABS: ALBUMIN 3.9 g/dL (3.5-5.0); ALKALINE PHOSPHATASE 86 U/L (38-126); AMYLASE 57 U/L (30-110); ANION GAP 13.6 MEQ/L (5-15); BLOOD UREA NITROGEN 10 mg/dL (7-17); CHLORIDE 99 mmol/L (98-107); Carbon Dioxide 26 mmol/L (22-30); Creatinine 1 0.64 mg/dL (0.52-1.04); EST GLOMERULAR FILTRATION RATE > 60.0 ML/MIN; Glucose 97 mg/dL (74-106); LIPASE 48 U/L (23-300); Potassium 3.4 mmol/L (3.5-5.1); SGOT/AST 30 U/L (14-36); SGPT/ALT 18 U/L (0-35); SODIUM 136 mmol/L (137-145); Total Protein 7.6 g/dL (6.3-8.2)
[2022-05-07] MEDS ORDERED: Klor Con PO ONE ×2 (12:55→13:02)
[2022-05-07 12:58] LABS: Bacteria RARE /HPF (NEGATIVE); Epithelial Cells RARE /HPF (FEW); Mucus SLIGHT /HPF (NEGATIVE)
[2022-05-07 12:59] LABS: Appearance CLEAR (CLEAR); Bilirubin SMALL (NEGATIVE); Glucose NEGATIVE (NEGATIVE); Ketones NEGATIVE (NEGATIVE); RBC LARGE Ery/ul (0-5)
[2022-05-07 13:00] LABS: Dipstick done @ ? MAIN LAB; Nitrite NEGATIVE (NEGATIVE); Protein,Urine Dip 30 (Negative); Urine Cultured Indicated? YES; Urobilinogen 0.2 mg/dL (0-1)
[2022-05-07 14:32] VITALS: BP 130/98; PULSE 77; O2SAT 99
== END 2022-05-07 14:34 | disposition home or self-care (01) ==
LOC: ED 11:57
DX: A08.4 Viral intestinal infection, unspecified (principal); E87.6 Hypokalemia; R10.84 Generalized abdominal pain; R19.7 Diarrhea, unspecified; E78.5 Hyperlipidemia, unspecified; Z79.899 Other long term (current) drug therapy
CPT/HCPCS: 36000; 36415; 80053; 81015; 82150; 83690; 85025; 87086; 96374; 99284; J2405; A9270-GY